=== PATIENT | female | born 1945 | race Caucasian/White ===

== ENCOUNTER → 2016-11-18 | Outpatient (CLI) | payer MEDICARE | END | disposition home or self-care (01) | LOC: PCVCIMAG 12:45 | PROVIDERS: ATTEND Internal Medicine | DX: Q23.9 Congenital malformation of aortic and mitral valves, unspecified (principal); I71.2 Thoracic aortic aneurysm, without rupture; I35.0 Nonrheumatic aortic (valve) stenosis; E78.5 Hyperlipidemia, unspecified; J45.909 Unspecified asthma, uncomplicated; R00.1 Bradycardia, unspecified | CPT/HCPCS: 80061; 93005; 93306; G0463 ==

== ENCOUNTER → 2017-10-27 | Outpatient (CLI) | payer MEDICARE | END | disposition home or self-care (01) | LOC: PCVCCLINIC 10:54 | DX: I35.0 Nonrheumatic aortic (valve) stenosis (principal); I71.2 Thoracic aortic aneurysm, without rupture; E78.5 Hyperlipidemia, unspecified; Z87.891 Personal history of nicotine dependence; Z79.899 Other long term (current) drug therapy | CPT/HCPCS: 80061; 93005; G0463 ==

== ENCOUNTER → 2017-11-03 | Outpatient (CLI) | payer MEDICARE | END | disposition home or self-care (01) | LOC: PCVCIMAG 08:57 | DX: Z01.818 Encounter for other preprocedural examination (principal); I71.2 Thoracic aortic aneurysm, without rupture; I08.3 Combined rheumatic disorders of mitral, aortic and tricuspid valves | CPT/HCPCS: 93306 ==

== ENCOUNTER → 2018-10-26 | Outpatient (CLI) | payer MEDICARE | END | disposition home or self-care (01) | LOC: PCVCCLINIC 10:46 | PROVIDERS: ATTEND Internal Medicine | DX: I35.0 Nonrheumatic aortic (valve) stenosis (principal); I71.2 Thoracic aortic aneurysm, without rupture; E78.5 Hyperlipidemia, unspecified; I10 Essential (primary) hypertension; J45.909 Unspecified asthma, uncomplicated; K21.9 Gastro-esophageal reflux disease without esophagitis; Z87.891 Personal history of nicotine dependence | CPT/HCPCS: 36415; 80061; 93005; G0463 ==

== ENCOUNTER → 2018-10-26 | Outpatient (CLI) | payer MEDICARE ==
--- NOTE | 2018-10-26 09:45 | PCVCIMAG ---
APPROVED REPORT Study performed: 10/26/2018 08:12:05 EXAM: Comprehensive 2D, Doppler, and color-flow Echocardiogram Patient Location: Echo lab Status: routine BSA: 1.99 HR: 56 bpmBP: 136/82 mmHg Rhythm: Bradycardia Other Information Study Quality: Adequate Risk Factors: Cardiac Risk Factors: HTN Indications Aortic Stenosis, obesity, bicuspid aortic valve. 2D Dimensions IVSd: 11.54 (7-11mm)LVOT Diam: 21.49 (18-24mm) LVDd: 42.94 mm PWd: 11.73 (7-11mm)Ascending Ao: 39.01 (22-36mm) LVDs: 32.13 (25-40mm) Left Atrium: 38.08 (27-40mm) Aortic Root: 36.20 mm LV Single Plane 4CH: 67.70 % LV Single Plane 2CH: 60.54 % Biplane EF: 64.4 % Volumes Left Atrial Volume (Systole) Single Plane 4CH: 96.14 mLSingle Plane 2CH: 95.78 mL Aortic Valve AoV Peak Roly.: 4.18 m/s AO Peak Gr.: 69.75 mmHgLVOT Max P.91 mmHg AO Mean Gr.: 42.95 mmHgLVOT Mean P.04 mmHg AO V2 Mean: 3.18 m/sLVOT Max V: 0.99 m/s AO V2 VTI: 108.40 cmLVOT Mean V: 0.67 m/s KAYLAH (VTI): 0.89 [id number] V1 VTI: 26.62 cm KAYLAH Vmax: 0.86 cm2 SV (LVOT): 96.52 mL Mitral Valve E/A Ratio: 0.78 MV Decel. Time: 298.21 ms MV E Max Roly.: 0.82 m/s MV A Roly.: 1.06 m/s IVRT: 107.27 ms Pulmonary Valve PV Peak Roly.: 0.92 m/sPV Peak Gr.: 3.37 mmHg Pulmonary Vein P Vein S: 0.38 m/sP Vein A: 0.33 m/s P Vein D: 0.48 m/sP Vein A Dur.: 141.9 msec Tricuspid Valve TR Peak Roly.: 2.45 m/s TR Peak Gr.: 24.09 mmHg TV Vmax: 0.49 m/s Left Ventricle The left ventricle is normal size. There is normal LV segmental wall motion. Mild concentric left ventricular hypertrophy. Left ventricular systolic function is normal. The left ventricular ejection fraction is within the normal range. LVEF is 60-65%. Grade I - abnormal relaxation pattern. Right Ventricle The right ventricle is normal size. The right ventricular systolic function is normal. Atria Left atrium is moderately dilated. Right atrium is mildly dilated. Aortic Valve Aortic valve is bicuspid, moderately calcified. No aortic regurgitation is present. There is moderate to severe valvular aortic stenosis. Calculated aortic valve area is .9 cm2 with maximum pressure gradient of 70 mmHg and mean pressure gradient of 43 mmHg. Mitral Valve The mitral valve is normal in structure. No mitral regurgitation. No evidence of mitral valve stenosis. Tricuspid Valve The tricuspid valve is normal in structure. Mild tricuspid regurgitation with PAP of 30 mmHg. Pulmonic Valve The pulmonary valve is normal in structure. There is no pulmonic valvular regurgitation. Great Vessels The aortic root is normal in size. The ascending aorta is mildly dilated to 3.9 cm. IVC is normal in size and collapses >50% with inspiration. Pericardium There is no pericardial effusion. There is no pleural effusion. <Conclusion> Left ventricular systolic function is normal. There is normal LV segmental wall motion. LVEF is 60-65%. Mild diastolic dysfunction Aortic valve is bicuspid, moderately calcified, moderate to severe valvular aortic stenosis. Calculated aortic valve area is .9 cm2 with maximum pressure gradient of 70 mmHg and mean pressure gradient of 43 mmHg. The mitral valve is normal in structure. No mitral regurgitation. Mild tricuspid regurgitation with pulmonary artery pressure of 30 mmHg. The ascending aorta is mildly dilated to 3.9 cm. There is no pericardial effusion.
== END | disposition home or self-care (01) ==
LOC: PCVCIMAG 08:57
PROVIDERS: ATTEND Internal Medicine
DX: I08.2 Rheumatic disorders of both aortic and tricuspid valves (principal); I71.2 Thoracic aortic aneurysm, without rupture; E78.5 Hyperlipidemia, unspecified; I10 Essential (primary) hypertension; E66.9 Obesity, unspecified; J45.909 Unspecified asthma, uncomplicated; K21.9 Gastro-esophageal reflux disease without esophagitis; Z87.891 Personal history of nicotine dependence
CPT/HCPCS: 36415; 80061; 93005; 93306; G0463